=== PATIENT | female | born 1985 | race Asian ===

== ENCOUNTER 2016-08-04 10:38 | Outpatient (CLI) | payer OTHER | END 2016-08-04 20:42 | disposition home or self-care (01) | LOC: MLB 10:38 | PROVIDERS: ATTEND Internal Medicine Geriatric Medicine | DX: Z00.00 Encounter for general adult medical examination without abnormal findings (principal) | CPT/HCPCS: 36415; 86706 ==

== ENCOUNTER 2016-10-23 15:16 | Outpatient (CLI) | payer OTHER | END 2016-10-23 21:36 | disposition home or self-care (01) | LOC: MLB 15:16 | PROVIDERS: ATTEND Internal Medicine Geriatric Medicine | DX: Z00.00 Encounter for general adult medical examination without abnormal findings (principal) | CPT/HCPCS: 36415 ==